=== PATIENT | male | born 1935 | race Caucasian/White ===

== ENCOUNTER 2018-06-07 10:42 | Emergency (ER) | payer MEDICAID ==
[~2018-06-07] VITALS: Ht 152.4 cm; Wt 52.0 kg
[2018-06-07 13:04] LABS: BASOPHILS % 0.7 % (0.0-2.0); EOSINOPHILS % 1.2 % (0.0-5.0); HEMATOCRIT. 46.5 % (42.0-52.0); HEMOGLOBIN. 15.2 g/dL (14.0-18.0); LYMPHOCYTES % 13.5 % (20.0-50.0); MEAN CORPUSCULAR HEMOGLOBIN 30.5 pg (28.0-32.0); MEAN CORPUSCULAR VOLUME 93.1 fL (80.0-94.0); MEAN PLATELET VOLUME 10.2 fl (7.4-10.4); MONOCYTES % 7.7 % (2.0-8.0); NEUTROPHILS % 76.9 % (40.0-76.0); PLATELET 144 x1000/uL (130-400); RED BLOOD CELL COUNT 4.99 mill/uL (4.7-6.1); RED CELL DISTRIBUTION WIDTH 16.2 % (11.6-14.6)
[2018-06-07 13:11] LABS: CHLORIDE 105 mEq/L (98-107)
[2018-06-07] MEDS ORDERED: FUROSEMIDE 40MG/4ML VIAL IVP NR (15:15)
[2018-06-07 16:36] VITALS: BP 128/86
== END 2018-06-07 16:30 | disposition left against medical advice (07) ==
LOC: ER 10:42
DX: I11.0 Hypertensive heart disease with heart failure (principal); I50.1 Left ventricular failure, unspecified; E88.09 Other disorders of plasma-protein metabolism, not elsewhere classified; E78.5 Hyperlipidemia, unspecified; J84.9 Interstitial pulmonary disease, unspecified; Z95.810 Presence of automatic (implantable) cardiac defibrillator
CPT/HCPCS: 36415; 71045; 80053; 83880; 84484; 85025; 93005; 96374; 99284; J1940

== ENCOUNTER 2018-08-08 12:35 | Inpatient (IN) | payer OTHER, MEDICAID ==
[~2018-08-08] VITALS: Ht 160 cm; Wt 46.7 kg
[2018-08-08] MEDS ORDERED: NITROGLYCERIN OINT 1GM/INCH UDPKT TD ONE (13:15)
[2018-08-08] MEDS ORDERED: FUROSEMIDE 40MG/4ML VIAL IV ONE (13:15)
[2018-08-08 13:24] LABS: BASOPHILS % 0.9 % (0.0-2.0); EOSINOPHILS % 1.5 % (0.0-5.0); HEMOGLOBIN. 14.9 g/dL (14.0-18.0); LYMPHOCYTES % 14.2 % (20.0-50.0); MEAN CORPUSCULAR HEMOGLOBIN 30.8 pg (28.0-32.0); MEAN CORPUSCULAR VOLUME 93.2 fL (80.0-94.0); MEAN PLATELET VOLUME 9.8 fl (7.4-10.4); NEUTROPHILS % 75.4 % (40.0-76.0); PLATELET 151 x1000/uL (130-400); RED BLOOD CELL COUNT 4.83 mill/uL (4.7-6.1); RED CELL DISTRIBUTION WIDTH 17.1 % (11.6-14.6)
[2018-08-08 13:31] LABS: CHLORIDE 107 mEq/L (98-107)
[2018-08-08] MEDS ORDERED: ASPIRIN 325MG EC TABLET PO ONE (14:00)
[2018-08-08 14:14] LABS: INR 1.1; PROTHROMBIN TIME 11.6 sec (9.6-11.0)
[2018-08-08] MEDS ORDERED: ACETAMINOPHEN 325MG TABLET PO PRN (15:15)
[2018-08-08] MEDS ORDERED: ONDANSETRON HCL 4MG/2ML INJ IV PRN (15:15)
[2018-08-08 15:48] LABS: CLARITY URINE CLEAR (CLEAR); COLOR URINE YELLOW (YELLOW); KETONES URINE NEGATIVE (NEGATIVE); LEUKOCYTE ESTERASE URINE NEGATIVE (NEGATIVE); NITRITE URINE NEGATIVE (NEGATIVE); OCCULT BLOOD URINE NEGATIVE (NEGATIVE); PH URINE 7.5 (4.5-8.0); PROTEIN URINE TRACE (NEGATIVE)
[2018-08-08 20:43] VITALS: BP 136/76
[2018-08-08 20:49] VITALS: BP 136/76
[2018-08-08] MEDS: FUROSEMIDE 100MG/10ML VIAL IVP SCH (21:17)
[2018-08-08] MEDS: CARVEDILOL 3.125 MG TABLET PO SCH (21:17)
[2018-08-09 00:05] VITALS: BP 106/52
[2018-08-09 04:00] VITALS: BP 113/66
[2018-08-09 06:37] LABS: BASOPHILS % 0.6 % (0.0-2.0); EOSINOPHILS % 3.3 % (0.0-5.0); HEMATOCRIT. 40.7 % (42.0-52.0); HEMOGLOBIN. 13.7 g/dL (14.0-18.0); LYMPHOCYTES % 14.7 % (20.0-50.0); MEAN CORPUSCULAR VOLUME 92.1 fL (80.0-94.0); MEAN PLATELET VOLUME 10.2 fl (7.4-10.4); MONOCYTES % 9.4 % (2.0-8.0); PLATELET 137 x1000/uL (130-400); RED BLOOD CELL COUNT 4.42 mill/uL (4.7-6.1); RED CELL DISTRIBUTION WIDTH 17.1 % (11.6-14.6)
[2018-08-09 08:00] VITALS: BP 124/77
[2018-08-09] MEDS ORDERED: POTASSIUM CHLORIDE 20MEQ TABLET SR PO SCH (09:00)
[2018-08-09] MEDS ORDERED: ENOXAPARIN 40MG/0.4ML SYR SUBCUT SCH (09:00)
[2018-08-09] MEDS ORDERED: ASPIRIN 81MG TABLET PO SCH (09:00)
[2018-08-09] MEDS ORDERED: AMLODIPINE 2.5MG TABLET PO SCH (09:00)
[2018-08-09] MEDS ORDERED: LISINOPRIL 5MG TABLET PO SCH (09:00)
[2018-08-09] MEDS: FUROSEMIDE 100MG/10ML VIAL IVP SCH (09:40)
[2018-08-09] MEDS: CARVEDILOL 3.125 MG TABLET PO SCH (09:41)
[2018-08-09 12:00] VITALS: BP 112/70
[2018-08-09 14:50] VITALS: BP 112/70
[2018-08-09 16:00] VITALS: BP 115/68
[2018-08-09] MEDS ORDERED: FUROSEMIDE 40MG TABLET PO SCH (21:00)
== END 2018-08-09 17:25 | disposition home or self-care (01) | DRG 194 ==
LOC: ER 12:35 → 7WST 14:57 → EDBEDREQ 14:58 → ENRESERV 18:04
PROVIDERS: ADMIT Internal Medicine; ATTEND Internal Medicine
DX: I13.0 Hypertensive heart and chronic kidney disease with heart failure and stage 1 through stage 4 chronic kidney disease, or unspecified chronic kidney disease (principal); I27.20 Pulmonary hypertension, unspecified; E44.1 Mild protein-calorie malnutrition; I50.23 Acute on chronic systolic (congestive) heart failure; I25.5 Ischemic cardiomyopathy; I25.10 Atherosclerotic heart disease of native coronary artery without angina pectoris; N18.9 Chronic kidney disease, unspecified; R09.02 Hypoxemia; Z79.899 Other long term (current) drug therapy; Z87.891 Personal history of nicotine dependence; Z95.810 Presence of automatic (implantable) cardiac defibrillator; I25.2 Old myocardial infarction; Z68.1 Body mass index [BMI] 19.9 or less, adult
CPT/HCPCS: 36415; 71045; 80048; 80061; 83880; 84443; 84484; 93005; 93306; 96374; 99285; J1650; J1940

== ENCOUNTER 2018-10-06 14:15 | Inpatient (IN) | payer MEDICAID ==
[~2018-10-06] VITALS: Ht 160 cm; Wt 59.9 kg
[2018-10-06 15:10] LABS: BASOPHILS % 0.7 % (0.0-2.0); EOSINOPHILS % 1.6 % (0.0-5.0); HEMATOCRIT. 37.8 % (42.0-52.0); HEMOGLOBIN. 12.5 g/dL (14.0-18.0); LYMPHOCYTES % 17.5 % (20.0-50.0); MEAN CORPUSCULAR HEMOGLOBIN 31.3 pg (28.0-32.0); MEAN CORPUSCULAR VOLUME 94.4 fL (80.0-94.0); MEAN PLATELET VOLUME 9.9 fl (7.4-10.4); MONOCYTES % 8.8 % (2.0-8.0); NEUTROPHILS % 71.4 % (40.0-76.0); PLATELET 151 x1000/uL (130-400); RED CELL DISTRIBUTION WIDTH 15.6 % (11.6-14.6)
[2018-10-06 15:13] LABS: CHLORIDE 105 mEq/L (98-107)
[2018-10-06] MEDS ORDERED: FUROSEMIDE 20MG/2ML VIAL IVP ONE (17:00)
[2018-10-06] MEDS ORDERED: DIPHENHYDRAMINE 50MG/ML VIAL IV PRN (19:00)
[2018-10-06] MEDS ORDERED: ACETAMINOPHEN 650MG/20.3ML UDC GT PRN (19:00)
[2018-10-06] MEDS ORDERED: CLONIDINE 0.1MG TABLET PO PRN (19:00)
[2018-10-06] MEDS ORDERED: IPRATROPIUM/ALBUTEROL 0.5-3(2.5)MG/3ML NEB INH PRN (19:00)
[2018-10-06] MEDS ORDERED: ONDANSETRON HCL 4MG/2ML INJ IV PRN (19:00)
[2018-10-06] MEDS ORDERED: NA PHOS,M-B/NA PHOS,DI-BA ENEMA 118ML PR PRN (19:00)
[2018-10-06] MEDS ORDERED: ACETAMINOPHEN 650MG SUPP PR PRN (19:00)
[2018-10-06] MEDS ORDERED: MAGNESIUM/ALUMINUM HYDROXIDE/SIMETHICONE 30ML UDC PO PRN (19:00)
[2018-10-06 21:00] VITALS: BP 110/57
[2018-10-07] MEDS: ENOXAPARIN 40MG/0.4ML SYR SUBCUT SCH ×2 (00:15→21:41)
[2018-10-07] MEDS: SODIUM CHLORIDE 0.9% INJ 3ML FLUSH IVF SCH ×4 (00:15→21:41)
[2018-10-07 00:22] LABS: CLARITY URINE CLEAR (CLEAR); COLOR URINE YELLOW (YELLOW); KETONES URINE NEGATIVE (NEGATIVE); LEUKOCYTE ESTERASE URINE NEGATIVE (NEGATIVE); NITRITE URINE NEGATIVE (NEGATIVE); OCCULT BLOOD URINE NEGATIVE (NEGATIVE); PH URINE 5.5 (4.5-8.0); PROTEIN URINE NEGATIVE (NEGATIVE); UROBILINOGEN URINE 0.2 E.U./dL (0.2-1.0)
[2018-10-07 00:30] VITALS: BP 112/56
[2018-10-07 00:31] LABS: *AMPHETAMINES SCREEN URINE NEGATIVE (NEGATIVE); *BARBITURATES SCREEN URINE NEGATIVE (NEGATIVE); *BENZODIAZEPINES SCREEN URINE NEGATIVE (NEGATIVE)
[2018-10-07 00:32] LABS: *COCAINE SCREEN URINE NEGATIVE (NEGATIVE); CANNABINOID URINE SCREEN NEGATIVE (NEGATIVE); METHADONE URINE SCREEN NEGATIVE (NEGATIVE); OPIATES URINE SCREEN NEGATIVE (NEGATIVE); PHENCYCLIDINE URINE SCREEN NEGATIVE (NEGATIVE)
[2018-10-07 04:00] VITALS: BP 100/51
[2018-10-07 06:59] LABS: BASOPHILS % 0.8 % (0.0-2.0); EOSINOPHILS % 1.9 % (0.0-5.0); HEMATOCRIT. 39.4 % (42.0-52.0); HEMOGLOBIN. 13.2 g/dL (14.0-18.0); LYMPHOCYTES % 17.6 % (20.0-50.0); MEAN CORPUSCULAR HEMOGLOBIN 31.1 pg (28.0-32.0); MEAN CORPUSCULAR VOLUME 93.1 fL (80.0-94.0); MEAN PLATELET VOLUME 10.8 fl (7.4-10.4); MONOCYTES % 8.7 % (2.0-8.0); PLATELET 152 x1000/uL (130-400); RED BLOOD CELL COUNT 4.24 mill/uL (4.7-6.1); RED CELL DISTRIBUTION WIDTH 15.7 % (11.6-14.6)
[2018-10-07 07:06] LABS: CHLORIDE 105 mEq/L (98-107)
[2018-10-07 07:18] LABS: LDL CHOLESTEROL 48 mg/dL (5-100)
[2018-10-07 07:19] LABS: CREATINE KINASE 50 IU/L (39-308); CREATINE KINASE MB FRACTION 1.4 ng/mL (0.5-3.6); HDL CHOLESTEROL 44 mg/dL (40-59)
[2018-10-07 08:00] VITALS: BP 123/64
[2018-10-07] MEDS ORDERED: FUROSEMIDE 40MG/4ML VIAL IV SCH (09:00)
[2018-10-07] MEDS: ASPIRIN 81MG EC TABLET PO SCH (09:04)
[2018-10-07] MEDS: FUROSEMIDE 100MG/10ML VIAL IV SCH ×2 (09:04→17:33)
[2018-10-07] MEDS: POTASSIUM CHLORIDE 10MEQ TABLET SR PO SCH (09:05)
[2018-10-07] MEDS: CARVEDILOL 3.125 MG TABLET PO SCH ×2 (09:05→21:00)
[2018-10-07 12:00] VITALS: BP 124/66
[2018-10-07] MEDS: ACETAMINOPHEN 325MG TABLET PO PRN (14:48)
[2018-10-07 16:00] VITALS: BP 125/77
[2018-10-07 16:20] LABS: CREATINE KINASE 53 IU/L (39-308)
[2018-10-07 16:23] LABS: CREATINE KINASE MB FRACTION 1.2 ng/mL (0.5-3.6)
[2018-10-07 20:00] VITALS: BP 91/53
[2018-10-08] VITALS: BP 112/67
[2018-10-08] MEDS: SODIUM CHLORIDE 0.9% INJ 3ML FLUSH IVF SCH ×3 (07:11→21:39)
[2018-10-08] MEDS: FUROSEMIDE 100MG/10ML VIAL IV SCH ×2 (07:12→18:20)
[2018-10-08 08:00] VITALS: BP 109/70
[2018-10-08] MEDS: CARVEDILOL 3.125 MG TABLET PO SCH ×2 (09:00→20:30)
[2018-10-08] MEDS: POTASSIUM CHLORIDE 10MEQ TABLET SR PO SCH (09:07)
[2018-10-08] MEDS: ASPIRIN 81MG EC TABLET PO SCH (09:07)
[2018-10-08] MEDS: ACETAMINOPHEN 325MG TABLET PO PRN ×2 (09:21→18:21)
[2018-10-08 09:31] LABS: BASOPHILS % 0.7 % (0.0-2.0); EOSINOPHILS % 2.7 % (0.0-5.0); HEMATOCRIT. 46.7 % (42.0-52.0); HEMOGLOBIN. 15.4 g/dL (14.0-18.0); LYMPHOCYTES % 17.7 % (20.0-50.0); MEAN PLATELET VOLUME 9.8 fl (7.4-10.4); MONOCYTES % 4.9 % (2.0-8.0); PLATELET 164 x1000/uL (130-400); RED BLOOD CELL COUNT 4.96 mill/uL (4.7-6.1); RED CELL DISTRIBUTION WIDTH 15.6 % (11.6-14.6)
[2018-10-08 09:37] LABS: CHLORIDE 98 mEq/L (98-107)
[2018-10-08 12:00] VITALS: BP 100/60
[2018-10-08 16:00] VITALS: BP 109/65
[2018-10-08 20:00] VITALS: BP 95/58
[2018-10-08] MEDS: ENOXAPARIN 40MG/0.4ML SYR SUBCUT SCH (21:39)
[2018-10-09] VITALS: BP 146/51
[2018-10-09 04:00] VITALS: BP 98/59
[2018-10-09] MEDS: FUROSEMIDE 100MG/10ML VIAL IV SCH (06:12)
[2018-10-09] MEDS: SODIUM CHLORIDE 0.9% INJ 3ML FLUSH IVF SCH (06:39)
[2018-10-09 08:00] VITALS: BP 95/55
[2018-10-09] MEDS: CARVEDILOL 3.125 MG TABLET PO SCH (09:00)
[2018-10-09] MEDS: POTASSIUM CHLORIDE 10MEQ TABLET SR PO SCH (10:21)
[2018-10-09] MEDS: ASPIRIN 81MG EC TABLET PO SCH (10:21)
[2018-10-09] MEDS ORDERED: COR3 PO (11:13)
[2018-10-09] MEDS ORDERED: FURO-151 MT (11:13)
[2018-10-09] MEDS ORDERED: ASPI-1158 PO (11:13)
[2018-10-09 12:00] VITALS: BP 105/63
[2018-10-09 12:22] VITALS: BP 105/63
== END 2018-10-09 14:30 | disposition home or self-care (01) | DRG 133 ==
LOC: ER 14:15 → 8WST 16:44 → EDBEDREQ 16:52 → ENRESERV 19:50
PROVIDERS: ADMIT Family Medicine; ATTEND Family Medicine
DX: J96.01 Acute respiratory failure with hypoxia (principal); I50.43 Acute on chronic combined systolic (congestive) and diastolic (congestive) heart failure; I47.2 Ventricular tachycardia; J84.9 Interstitial pulmonary disease, unspecified; I27.20 Pulmonary hypertension, unspecified; I25.5 Ischemic cardiomyopathy; I25.10 Atherosclerotic heart disease of native coronary artery without angina pectoris; E83.52 Hypercalcemia; I08.0 Rheumatic disorders of both mitral and aortic valves; J44.9 Chronic obstructive pulmonary disease, unspecified; I13.0 Hypertensive heart and chronic kidney disease with heart failure and stage 1 through stage 4 chronic kidney disease, or unspecified chronic kidney disease; N18.9 Chronic kidney disease, unspecified; Z95.810 Presence of automatic (implantable) cardiac defibrillator; I25.2 Old myocardial infarction; Z87.891 Personal history of nicotine dependence; Z86.73 Personal history of transient ischemic attack (TIA), and cerebral infarction without residual deficits
CPT/HCPCS: 36415; 71045; 80061; 80305; 82550; 82553; 83735; 83880; 84484; 93005; 96374; 99285; J1650; J1940; J7620

== ENCOUNTER 2019-01-17 08:42 | Emergency (ER) | payer MEDICAID, OTHER ==
[~2019-01-17] VITALS: Ht 160 cm; Wt 64.0 kg
[~2019-01-17 08:42] MED LIST: ASPI-1158 PO; COR3 PO; FURO-151 MT
[2019-01-17 09:40] LABS: BASOPHILS % 0.6 % (0.0-2.0); EOSINOPHILS % 0.6 % (0.0-5.0); HEMATOCRIT. 47.5 % (42.0-52.0); HEMOGLOBIN. 15.4 g/dL (14.0-18.0); LYMPHOCYTES % 19.4 % (20.0-50.0); MEAN CORPUSCULAR HEMOGLOBIN 31.4 pg (28.0-32.0); MEAN CORPUSCULAR VOLUME 97.1 fL (80.0-94.0); MEAN PLATELET VOLUME 10.3 fl (7.4-10.4); MONOCYTES % 7.7 % (2.0-8.0); NEUTROPHILS % 71.7 % (40.0-76.0); PLATELET 144 x1000/uL (130-400); RED BLOOD CELL COUNT 4.89 mill/uL (4.7-6.1); RED CELL DISTRIBUTION WIDTH 15.5 % (11.6-14.6)
[2019-01-17 09:44] LABS: CHLORIDE 106 mEq/L (98-107)
[2019-01-17 13:50] VITALS: BP 138/93
== END 2019-01-17 14:20 | disposition left against medical advice (07) ==
LOC: ER 10:20
DX: M79.601 Pain in right arm (principal); Z91.81 History of falling; R07.89 Other chest pain; R00.1 Bradycardia, unspecified; J84.9 Interstitial pulmonary disease, unspecified; R79.89 Other specified abnormal findings of blood chemistry; Z95.810 Presence of automatic (implantable) cardiac defibrillator
CPT/HCPCS: 36415; 71045; 83880; 84484; 93005; 99284